=== PATIENT | male | born 1935 | race Caucasian/White ===

== ENCOUNTER 2016-06-28 10:11 | Inpatient (IN) | payer BC, MEDICARE ==
--- NOTE | ~2016-06-28 | DS ---
Discharge Summary [facility] [address] [facility] [place]. [address] NAME: WISAM SOW : 33 STATUS : DIS IN PAT#: [id number] AGE: 81 ADM/REG DATE : 06/28/16 MR#: [id number] REPORT SERV DATE: 06/30/16 DICTATED BY: JOSEF CRAIN DATE: 06/29/16 REPORT STATUS : Draft TRANSCRIBED BY: AVELINA DATE: 06/29/16 ADMISSION DATE: 06/28/2016 DISCHARGE DATE: 06/29/2016 DISCHARGE DIAGNOSES: 1. Vertigo. 2. Diabetes mellitus type 2. 3. Hypertension. 4. Ischemic cardiomyopathy with EF 28%. 5. Chronic systolic heart failure with reduced EF 28%. 6. Hyperlipidemia. 7. Sick sinus syndrome, status post pacemaker. 8. Coronary artery disease status post LAD stenting in 2008. 9. History of left carotid endarterectomy. 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 DISCHARGE CONDITION: Stable. HISTORY OF PRESENT ILLNESS: In brief, this is an 81-year-old male with medical history of cardiomyopathy with EF around 28%, hypertension diabetes, mellitus type 2, who presented to the ED on 06/28/2016 with complaints of dizziness, when he turn his head from side to side. In the ER, he was noted to have vitals, blood pressure of 156/86, heart rate of 71, temperature of 97.8. Physical exam was essentially benign. Laboratory on presentation was within acceptable range. Imaging of the head CT without contrast impression was noted for dense appearing superior segment of the right vertebral artery, questionable embolus. The patient was admitted to the Hospitalist Service for further evaluation. For detailed HPI, please make reference to Dr. Marielle Esqueda, dictation on 06/28/2016. HOSPITAL COURSE: 1. Vertigo. Based on CT noncontrast finding of a possible thrombus within the right vertebral artery segments, Neurology was consulted for his CVA workup. Neurology recommended a CTA of the head and neck. CTA of the head and neck was negative, showed no intracranial thrombus identified. Diagnosis of the patient's presentation likely due to BPPV/vertigo. Nephrology recommended to start the patient on Antivert 25 mg p.r.n. The patient's symptoms completely abated during the course of this admission. At the time of discharge, the patient was feeling comfortable. The patient had no further episodes of dizziness and was asked to follow up with primary care physician during the course of this admission. 2. Coronary artery disease status post PCI with history of mixed ischemic cardiomyopathy. Cardiology was consulted because on the initial presentation it was initially thought that the patient's symptoms may be related to cardiac arrhythmias given that the patient is being scheduled to have pacemaker upgraded to AICD. 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 [address] NAME: WISAM SOW : 33 STATUS : DIS IN PAT#: [id number] AGE: 81 ADM/REG DATE : 06/28/16 MR#: [id number] REPORT SERV DATE: 06/30/16 DICTATED BY: JOSEF CRAIN DATE: 06/29/16 REPORT STATUS : Draft TRANSCRIBED BY: AVELINA DATE: 06/29/16 Pavel came and evaluated the patient, noted that the patient's symptoms were not attributed to any cardiac arrhythmias. Cardiology recommended the patient to follow up as an outpatient to have pacemaker upgraded to an AICD. The patient has an appointment scheduled for 07/02/2016 to have the pacemaker upgrade to an AICD. 3. Hypertension. The patient's blood pressure remained controlled throughout the course of this admission. 4. Diabetes mellitus. The patient was placed on subcu insulin during the course of this admission. No period of hypoglycemia noted. The patient was advised to continue oral hypoglycemics and followup with primary care physician as an outpatient. IMAGIN. CTA of the head impression:. a. Mild to moderate calcification of the carotid bifurcations without with hemodynamically significant stenosis. b. No intracranial thrombus identified. 2. CTA brain with and without contrast impression:. a. No intracranial thrombus identified. b. Mild to moderate calcification at the carotid bifurcation without hemodynamically significant stenosis. 3. CTA of the brain on initial presentation:. a. Dense appearance to the superior segment of the right vertebral artery, questionable embolus. DISCHARGE MEDICATIONS: 1. Aspirin 81 mg p.o. daily. 2. Coreg 25 mg p.o. b.i.d. 3. Vitamin D3 5000 units p.o. daily. 4. Coenzyme Q 10 mg p.o. daily. 5. Lisinopril 5 mg p.o. daily. 6. Protonix 40 mg p.o. daily. 7. Tamsulosin 0.4 mg p.o. daily. 8. Balsalazide disodium 2250 mg p.o. b.i.d. 9. Zocor 40 mg p.o. daily. 10.Glimepiride 4 mg p.o. daily. 11.Glimepiride 2 mg p.o. at bedtime. DISCHARGE ACTIVITY: As tolerated. DISCHARGE FOLLOWUP: 1. The patient to follow up with Cardiology on 07/02/2016 to upgrade the pacemaker to an AICD. 2. Follow up with primary care physician. DISCHARGE DIET: ADA, 1800 calorie diet. Greater than 30 minutes was used to prepare this patient's discharge, reconcile medication, advised the patient on discharge plans, and followup. Discharge Summary [address] [address] NAME: WISAM SOW : 33 STATUS : DIS IN PAT#: [id number] AGE: 81 ADM/REG DATE : 06/28/16 MR#: [id number] REPORT SERV DATE: 06/30/16 DICTATED BY: JOSEF CRAIN DATE: 06/29/16 REPORT STATUS : Draft TRANSCRIBED BY: AVELINA DATE: 06/29/16 JANNETTE/AVELINA Josef Crain MD / [id number] CC: MD Nelida Marino D.O. F.A.C.P.
--- NOTE | ~2016-06-28 | CN ---
Consultation Report [facility] [address] [place]. [address] NAME: WISAM SOW : 33 STATUS : ADM IN [facility]#: [id number] AGE: 81 ADM/REG DATE : 06/28/16 MR#: [id number] REPORT SERV DATE: 06/28/16 DICTATED BY: VIRGILIO HOOK DATE: 06/28/16 REPORT STATUS : Draft TRANSCRIBED BY: MODL DATE: 06/28/16 CARDIOVASCULAR CONSULTATION DATE OF CONSULTATION: This cardiovascular consultation requested by Dr. Cid. INDICATION: Vertigo, dizziness, low ejection fraction, question ICD. HISTORY OF PRESENT ILLNESS: Mr. Sow is an 81-year-old man with a history of known coronary artery disease, status post LAD stenting in 2008. He has a history of sick sinus syndrome with prior pacemaker placement. On pacemaker interrogation last year, he had some nonsustained VT, which prompted an echocardiogram. This demonstrated a new low ejection fraction of 30% by echo on 03/25/2016. He underwent cardiac catheterization two days later, demonstrating no new significant coronary artery disease with medical management recommended. He was treated with medical therapy for congestive heart failure as an outpatient for three months. Repeat echocardiogram reveals similar junction fraction of 28%. Earlier today, he developed some symptoms of vertigo. He felt his head spinning especially when he turned from side to side. This lasted for several hours. He ate a meal thinking it was low blood sugar. He did not have any chest pain or palpitations. He presented to the emergency room, where he still had the symptoms. Telemetry monitoring did not show any cardiac arrhythmia. He had a head CT performed, which questioned possible thrombus in his vertebral artery. Neurology has been consulted and is recommended that head CT angiogram. The symptoms have largely now resolved. PAST MEDICAL HISTORY: 1. Coronary artery disease, status post LAD stenting in 2008. 2. Sick sinus syndrome, status post pacemaker. 3. History of left carotid endarterectomy. 4. Hypertension. 5. Hypercholesterolemia. 6. Type 2 diabetes. 7. Mixed ischemic-nonischemic cardiomyopathy. SOCIAL HISTORY: He does not smoke or drink alcohol. FAMILY HISTORY: There is no family history of early coronary artery disease. REVIEW OF SYSTEMS: A complete review of systems was obtained, which is negative in detail except as mentioned above in the HPI. ALLERGIES: LATEX. Consultation Report [facility] [address] [address] NAME: WISAM SOW : 33 STATUS : ADM IN [facility]#: [id number] AGE: 81 ADM/REG DATE : 06/28/16 MR#: [id number] REPORT SERV DATE: 06/28/16 DICTATED BY: VIRGILIO HOOK DATE: 06/28/16 REPORT STATUS : Draft TRANSCRIBED BY: MODLuiz DATE: 06/28/16 MEDICATIONS: As an outpatient include aspirin 81 mg daily, sulfasalazine, Coreg 25 mg twice a day, vitamin D, enzyme Q10, Amaryl, glucosamine, Zestril 5 mg daily, melatonin, multivitamin, Aleve, Protonix, Zocor 40 mg daily, Flomax. PHYSICAL EXAMINATION: VITAL SIGNS: Blood pressure 110/70, heart rate of 70 and regular, respiratory rate of 14. GENERAL: Comfortable in no acute distress. HEENT: Anicteric. No xanthelasma. Lips without cyanosis. NECK: No JVD. Carotids 2+ and symmetric. No carotid bruits. LUNGS: CTA bilaterally. No wheezes or rhonchi. No accessory muscle use. COR: RRR. Normally placed PMI. Normal S1 and S2. No murmurs, rubs or gallops. ABD: Soft, nontender, nondistended. Normal bowel sounds. No abdominal bruits. EXT: No clubbing, cyanosis or edema 2+ and symmetric distal pulses. SKIN: Warm. Dry. No venous stasis changes. MS: No kyphosis. NEURO/PSYCH: Oriented x3. No anxiety or depression. DATA: EK-lead EKG shows AV pacing, left bundle-branch block pattern, nonspecific T- wave abnormalities noted. Laboratory studies: White count of 5, hematocrit of 40. Creatinine of 1.0, BNP of 66. IMPRESSION: Mr. Sow is admitted with symptoms of vertigo. There is a concern that he might have a vertebral embolus or thrombus. Further confirmation, pending head CT angiogram results. I do not think his symptoms are consistent with cardiac arrhythmia. He was still having symptoms in the emergency room when he was on telemetry and no arrhythmia was noted. The device interrogation about two weeks ago shows only 4 seconds of nonsustained ventricular tachycardia, but no other arrhythmias. We will continue his current neurologic evaluation. He has an appointment for consideration of an elective ICD, biventricular ICD upgrade with Dr. Morris on Thursday. JEROME/MODL Virgilio Hook M.D. / [id number] CC: MD Nelida Marino D.O. F.A.C.P.
--- NOTE | ~2016-06-28 | CN ---
Consultation Report [facility] [address] [place]. [address] NAME: WISAM SOW : 33 STATUS : ADM IN PAT#: [id number] AGE: 81 ADM/REG DATE : 06/28/16 MR#: [id number] REPORT SERV DATE: 06/28/16 DICTATED BY: DATE: REPORT STATUS : Draft TRANSCRIBED BY: MODL DATE: 06/28/16 NEUROLOGY CONSULTATION DATE OF CONSULTATION: 06/28/2016 REASON FOR CONSULT: Vertigo. HISTORY OF PRESENT ILLNESS: This is an 81-year-old male, presented to [facility] on 06/28/2016 secondary to vertigo type of sensation, with the patient reports the symptoms started when the patient is awake at 0800 hours with associated gait abnormality, walking as if he is drunk with a severe balance problem, bumping to wall all the time. The patient was last noted to be normal at 2300 hours on 06/27/2016 by before going to bed. The patient denies similar symptoms in the past. Otherwise, denies any dysarthria, dysphagia, language difficulties, diplopia, and denies any focal weakness. The patient's symptoms since improved after emergency department treated the patient with medication. The patient reports a history of upper respiratory infection several weeks ago with a residual cough, but otherwise, no recent illness. No chest pain or shortness of breath. The patient does have a history of recent carvedilol to addition to his medication list since March 2016 with a slow titration secondary to congestive heart failure, with the patient has had recent echocardiogram on 06/19/2016 with demonstrating decreased EF of once 30% to apparently 28%. The patient is scheduled to be evaluated by Dr. Morris of Cardiology for biventricular pacemaker placement with a defibrillator function this week, 07/02/2016. Otherwise, the patient does have a history of previous aspirin and Plavix usage with the patient noted to have anemia when patient was on Plavix. The patient is currently only on aspirin 81 mg p.o. daily with reports compliance and is on simvastatin. No other changes in medication were otherwise noted. The patient does not have any recent fever and no other recent illness. PAST MEDICAL HISTORY: The patient's past medical history is significant for pacemaker placement; diabetes; hypertension; coronary artery disease, status post stents as well as history of congestive heart failure, recent echocardiogram on 06/19/2016, history of arthritis. FAMILY HISTORY: Significant for diabetes, colon issues, arthritis, stroke in the father as well as emphysema. The patient's father is a smoker. SOCIAL HISTORY: The patient, otherwise social history denies tobacco, alcohol, or recreational drug usage. MEDICATIONS: The patient currently is on aspirin as well as balsalazide, carvedilol, vitamin D3, coenzyme Q10, Amaryl, glucosamine and chondroitin, lisinopril, melatonin, multivitamin, naproxen, Protonix, Systane eyedrop, simvastatin, Flomax. ALLERGIES: THE PATIENT REPORTS ALLERGY TO ADHESIVE TAPE AND LATEX. Consultation Report [place] [id number] [facility] [place]. [address] NAME: WISAM SOW : 33 STATUS : ADM IN [facility]#: [id number] AGE: 81 ADM/REG DATE : 06/28/16 MR#: [id number] REPORT SERV DATE: 06/28/16 DICTATED BY: DATE: REPORT STATUS : Draft TRANSCRIBED BY: MODL DATE: 06/28/16 REVIEW OF SYSTEMS: Otherwise, negative except for those mentioned in the HPI. PHYSICAL EXAMINATION: VITAL SIGNS: The patient, since the hospitalization, was noted to have vital signs with T- max of 97.8, heart rate of 71 to 88, respirations of 14 to 20, and blood pressure of 127 to 156 over 63 to 86. GENERAL: The patient is well developed, well nourished, in no acute distress. CARDIOVASCULAR: Regular rate and rhythm. No carotid bruits were otherwise auscultated. PULMONARY: Clear to auscultation bilaterally. NEUROLOGICAL EXAMINATION: Generally, the patient is alert and oriented x3. Follows simple and 2-step commands. No dysarthria. No aphasia. Intact registration and recall. Cranial nerves II through XII, pupils equal, round, and reactive to light. Extraocular eye movement was noted to be intact. No nystagmus was noted. The patient denies diplopia or vertigo with extraocular eye movement. Mild decreased nasolabial fold on the right. Otherwise, symmetrical facial sensation. Midline tongue. Normal palatal movement. The patient was noted to have decreased hearing in bilateral ears with bilateral hearing aids. Otherwise, was noted to have 5/5 bilateral upper and lower extremity strength. No pronator drift. Normal [id number] examination without ataxia. 1+ reflexes throughout. Normal station. Normal gait. Symmetrical sensation bilaterally. LABORATORY STUDIES: Demonstrates sodium 143, potassium of 4.3, chloride 106, bicarb of 28, BUN of 19, creatinine 0.97, glucose of 141, calcium of 8.5. White blood cell count of 5.0, hemoglobin of 12.7, hematocrit of 40.5, platelet count of 214. CT scan of the brain, otherwise demonstrated no acute process. However, prominent right vertebral artery was noted concern for possible thrombus. IMPRESSION: 1. Vertigo. Last noted to be normal on 2300 hours on 06/27/2016, the patient woke up at 0800 hours with vertigo with the patient noted to have improved symptoms after ER presentation and treatment. Alteplase was not offered secondary to symptom onset greater than 4.5 hours, so is thrombectomy not offered secondary to the patient's improving symptoms. NIH stroke scale was noted to be 1. Agree with CT angiogram of head and neck. The patient is unable to obtain MRI secondary to previous pacemaker placement. We are recommending the patient to be placed on thiamine 100 mg p.o. daily as well as telemetry monitoring. The patient does have a recent echocardiogram on 06/19/2016, we will not repeat. Otherwise, we will discontinue the patient's simvastatin and place the patient on atorvastatin 80 mg p.o. q.h.s. We will continue aspirin pending CTA of the head and neck, we will decide if the patient needs to be on Plavix. RECOMMENDATION: 1. CT angiogram of head and neck. Consultation Report [address] [place]. [address] NAME: WISAM SOW : 33 STATUS : ADM IN PAT#: [id number] AGE: 81 ADM/REG DATE : 06/28/16 MR#: [id number] REPORT SERV DATE: 06/28/16 DICTATED BY: DATE: REPORT STATUS : Draft TRANSCRIBED BY: MODL DATE: 06/28/16 2. Thiamine 100 mg p.o. daily. 3. Recent echocardiogram on 06/19/2016. 4. Atorvastatin 80 mg p.o. q.h.s. 5. Discontinue simvastatin. 6. We will check orthostatic vitals. 7. If the patient was noted to have a persistent resolution of the symptom and CT angiogram is otherwise normal, we will hopefully be able to discharge the patient on 06/29/2016. CCH/MODL Forrest Kearney MD / [id number] CC: MD Nelida Marino D.O. F.A.C.P.
--- NOTE | ~2016-06-28 | HP ---
History And Physical [address] [address] NAME: WISAM SOW : 33 STATUS : ADM IN [facility]#: [id number] AGE: 81 ADM/REG DATE : 06/28/16 MR#: [id number] REPORT SERV DATE: 06/28/16 DICTATED BY: KRUPA HIGUERA DATE: 06/28/16 REPORT STATUS : Draft TRANSCRIBED BY: AVELINA DATE: 06/28/16 DATE OF ADMISSION: 06/28/2016 CHIEF COMPLAINT: Dizziness. HISTORY OF PRESENT ILLNESS: This is an 81-year-old man with past medical history of cardiomyopathy with an EF of around 28%, hypertension, diabetes type 2, comes into the ED complaining of dizziness that started on the day of admission. The patient reports that he was stumbling. Dizziness experienced more when turning his head from side to side. The patient reports that he is to go to Dr. Flores for AICD placement early next week and came into the hospital because he thought his symptoms were heart related. The patient denies any chest pain, shortness of breath, palpitations, diaphoresis, hemoptysis, melena, hematochezia, orthopnea, lower extremity swelling, slurred speech, localized weakness, headache, loss of consciousness, or blurry vision. The patient denies any fever, chills, nausea, vomiting, or diarrhea. The patient was evaluated in the ED. A CT without contrast was done which showed dense-appearing superior segment of right vertebral artery that question embolus. The ED physician discussed case with Neurology. Neurology recommended inpatient management. ALLERGIES: LATEX, ADHESIVE. HOME MEDICATIONS: Include: 1. Aspirin 81 mg p.o. at bedtime. 2. Balsalazide 2250 p.o. b.i.d. 3. Carvedilol 25 mg p.o. b.i.d. 4. Vitamin D3 1000 unit tab 5000 units p.o. daily. 5. Coenzyme Q10 100 mg p.o. daily. 6. Amaryl 2 mg p.o. at bedtime. 7. Amaryl 4 mg p.o. daily. 8. Glucosamine chondroitin 1 tablet p.o. b.i.d. 9. Lisinopril 5 mg p.o. daily. 10.Melatonin 3 mg at bedtime. 11.Multivitamin p.o. daily. 12.Naproxen 220 mg p.o. daily p.r.n. 13.Protonix 40 mg p.o. b.i.d. 14.Systane eye drops p.r.n. 15.Zocor 40 mg p.o. at bedtime. 16.Flomax 0.4 mg p.o. at bedtime. 17.MegaRed p.o. daily. 18. capsule p.o. b.i.d. PAST MEDICAL HISTORY: Significant for: 1. Ischemic cardiomyopathy with EF around 20%. 2. Hypertension. 3. Hyperlipidemia. 4. Diabetes type 2. History And Physical [address] [address] NAME: WISAM SOW : 33 STATUS : ADM IN [facility]#: [id number] AGE: 81 ADM/REG DATE : 06/28/16 MR#: [id number] REPORT SERV DATE: 06/28/16 DICTATED BY: KRUPA HIGUERA DATE: 06/28/16 REPORT STATUS : Draft TRANSCRIBED BY: AVELINA DATE: 06/28/16 5. Status post pacemaker. SOCIAL HISTORY: Denies any alcohol, tobacco, or illicit drug use. FAMILY HISTORY: Positive for coronary artery disease in the mother. REVIEW OF SYSTEMS: Twelve-point system reviewed, otherwise negative per HPI. PHYSICAL EXAMINATION: VITAL SIGNS: Temperature 97.8, heart rate 71, blood pressure 156/86, respiratory rate 18, and O2 saturation 100. GENERAL: In no acute distress. HEENT: EOMI, PERRLA. Nonicteric sclerae. Nonerythematous pharynx. NECK: Supple. No JVD. No lymphadenopathy. RESPIRATORY: Clear to auscultation bilaterally. No wheeze, rhonchi, or crackles. CARDIOVASCULAR: Regular rate and rhythm. No murmurs, rubs, or gallops. ABDOMEN: Bowel sounds positive. Soft, nontender, nondistended. No rebound or guarding. EXTREMITIES: No edema or cyanosis. NEUROLOGIC: Alert and oriented x3. Cranial nerves 2 through 12 intact. LABORATORY DATA: WBC of 5, hemoglobin 12.7, hematocrit 40.5, platelets 214. Sodium 142, potassium 4.3, chloride 106, bicarb 28, BUN 19, creatinine 0.97. BNP 66.4. IMAGING: CT of the head without contrast, impression: Dense-appearing superior segment of the right vertebral artery. Question embolus. Chest x-ray, impression: No acute cardiopulmonary disease. Pacemaker overlying the left chest, stable. ASSESSMENT: 1. Dizziness. Differential benign paroxysmal positional vertigo, cerebrovascular accident. 2. Ischemic cardiomyopathy with EF of 28%. 3. Hypertension. 4. Hyperlipidemia. 5. Diabetes type 2. 6. Pacemaker. PLAN: The patient will be admitted to medical bed. CVA order set. Consult Neurology. Aspirin and statin. Follow up CTA of the head and neck. Restart appropriate home medications. Meclizine. Consult Dr. Flores of Cardiology for possible AICD placement. Sliding scale level 2 a.c. and h.s. coverage. Further evaluation and management per clinical course. Code status is full code. DVT prophylaxis with Lovenox. GI prophylaxis with PPI. Total time for history and physical is 35 minutes. History And Physical [address] [address] NAME: WISAM SOW : 33 STATUS : ADM IN [facility]#: [id number] AGE: 81 ADM/REG DATE : 06/28/16 MR#: [id number] REPORT SERV DATE: 06/28/16 DICTATED BY: KRUPA HIGUERA DATE: 06/28/16 REPORT STATUS : Draft TRANSCRIBED BY: AVELINA DATE: 06/28/16 TAMMIE/AVELINA Marielle Esqueda MD / [id number] CC: MD Nelida Marino D.O. F.A.C.P.
[~2016-06-28 10:11] MED LIST: ALEVE220 MG PO; AMARYL2 PO; AMARYL4 PO; AMB10 PO; ASAB PO; CENTRUM TAB1 TAB PO; CITRACAL PO; COLAZAL 750 MG750 MG PO; COQ10100 MG OR; COQ10100 MG PO; COREG3 PO; FISH-EPA1000 MG PO; FLEXI JOIN1 PO; FLOMAX4 PO; GLUCCHONDR PO; GLUCOSAMINEPO; MEGA RED KRILL OIL PO; MELA3 PO; MULTIPLE VIT PO; MULTIVITAMI1 PO; NEXIUM40 PO; NORV25 PO; OS500+D PO; PLAVIX PO; PRIN10 PO; PRIN5 PO; PROMEGA PO; ROZEREM8 MG PO; T PO; VITAMIN D31000 UNIT PO; ZESTRIL20 MG PO; ZOCOR40 PO; [UNRECOGNIZED DRUG - OTHER] PO; [UNRECOGNIZED DRUG - OTHER] PO
[2016-06-28 11:48] LABS: BASOPHILS 0.2 %; BASOPHILS ABSOLUTE 0.01 10/3/uL (0.0-0.16); EOSINOPHILS 0.4 %; EOSINOPHILS ABSOLUTE 0.02 10/3/uL (0.0-0.53); ER CBC TAT 0 Hrs 07 Mins; HEMATOCRIT 40.5 % (40.0-51.0); HEMOGLOBIN 12.7 g/dL (13.6-17.8); LYMPHOCYTES 21.4 %; LYMPHOCYTES ABSOLUTE 1.07 10/3/uL (0.67-4.30); MEAN CORPUS HGB CONC 31.4 g/dL (32.0-36.0); MEAN CORPUSCULAR HEMOGLOB 25.8 pg (26.0-34.0); MEAN CORPUSCULAR VOLUME 82.3 fL (80-100); MEAN PLATELET VOLUME 10.1 fL (9.2-13.0); MONOCYTES 5.6 %; MONOCYTES ABSOLUTE 0.28 10/3/uL (0.21-1.20); NEUTROPHILS 72.4 %; NEUTROPHILS ABSOLUTE 3.62 10/3/uL (2.02-8.40); PLATELET COUNT 214 10/3/uL (150-400); RBC DISTRIBUTION WIDTH 15.4 % (12.0-16.0); RED CELL COUNT 4.92 10/6/uL (4.7-6.1)
[2016-06-28 11:50] LABS: MANUAL DIFF NO %
[2016-06-28 12:00] LABS: CALCIUM, SERUM 8.5 MG/DL (8.5-10.4); CHLORIDE, SERUM 106 MMOL/L (96-112); CO2 (CARBON DIOXIDE) 28 MMOL/L (24-34); CREATININE 0.97 MG/DL (0.70-1.30); GFR AFRICAN AMERICAN 83 ML/MIN (>=60); GFR NON AFRICAN AMERICAN 72 ML/MIN (>=60); POTASSIUM, SERUM 4.3 MMOL/L (3.5-5.3); SODIUM, SERUM 143 MMOL/L (135-148)
[2016-06-28 12:01] LABS: BUN (BLOOD UREA NITROGEN) 19 MG/DL (6-23); GLUCOSE, SERUM 141 MG/DL (60-99)
[2016-06-28] MEDS ORDERED: COREG25 PO (13:15)
[2016-06-28] MEDS ORDERED: PROTONIX PO (13:15)
[2016-06-28] MEDS ORDERED: PRESERVISION A1 EAC1 PO (13:16)
[2016-06-28] MEDS ORDERED: ZOCOR40 PO (13:16)
[2016-06-28] MEDS ORDERED: BALSALAZIDE750 MG PO (13:16)
[2016-06-28] MEDS ORDERED: ZESTRIL5 MG PO (13:16)
[2016-06-28] MEDS ORDERED: ALEVE220 MG PO (13:17)
[2016-06-28] MEDS ORDERED: AMARYL2 PO (13:17)
[2016-06-28] MEDS ORDERED: AMARYL4 PO (13:17)
[2016-06-28] MEDS ORDERED: FLOMAX4 PO (13:17)
[2016-06-28] MEDS ORDERED: THERGRANM PO (13:17)
[2016-06-28] MEDS ORDERED: MEGA RED PO (13:18)
[2016-06-28] MEDS ORDERED: MELA3 PO (13:18)
[2016-06-28] MEDS ORDERED: GLUCCHONDR PO (13:18)
[2016-06-28] MEDS ORDERED: SYSTANE OPH (13:18)
[2016-06-28] MEDS ORDERED: HALF81 PO (13:18)
[2016-06-28] MEDS ORDERED: VITAMIN D31000 UNIT PO (13:19)
[2016-06-28] MEDS ORDERED: CO Q-10100 MG PO (13:19)
[2016-06-28 19:12] LABS: CHOL/HDL RATIO(NOT ORDER) 2.4 (0-5); CHOLESTEROL 124 MG/DL (< 200); HDL CHOLESTEROL 52 MG/DL (> 39); LDL CHOLESTEROL 50 MG/DL (< 130); NON-HDL CHOLESTEROL 72 MG/DL (< 160); TRIGLYCERIDE 111 MG/DL (< 150)
[2016-06-28 19:25] LABS: INTERNATIONAL NORMAL RATI 1.2 UNITS (-); PARTIAL THROMBO TIME 33.3 SEC (22.5-37.2); PROTIME (NOT ORD) 15.3 SEC (12.0-14.5)
[2016-06-28 19:34] LABS: TROPONIN I <0.02 NG/ML (<0.05)
[2016-06-28 19:46] LABS: CK-MB 2.3 NG/ML; CPK 118 U/L (0-200)
[2016-06-29 03:03] LABS: ASCORBIC ACID (UR NOT ORDER) 40 (NEG); BILIRUBIN, URINE NEGATIVE (NEG); KETONE, URINE NEGATIVE (NEG); LEUKOCYTE ESTERASE(NOT OR NEG (NEG); WBC (NOT ORDERED) (RFLEX) < 1 (0-5)
[2016-06-29 03:39] LABS: BASOPHILS 0.2 %; BASOPHILS ABSOLUTE 0.01 10/3/uL (0.0-0.16); EOSINOPHILS 0.9 %; EOSINOPHILS ABSOLUTE 0.04 10/3/uL (0.0-0.53); HEMATOCRIT 36.3 % (40.0-51.0); HEMOGLOBIN 11.5 g/dL (13.6-17.8); LYMPHOCYTES 29.5 %; LYMPHOCYTES ABSOLUTE 1.37 10/3/uL (0.67-4.30); MANUAL DIFF NO %; MEAN CORPUS HGB CONC 31.7 g/dL (32.0-36.0); MEAN CORPUSCULAR HEMOGLOB 25.7 pg (26.0-34.0); MEAN CORPUSCULAR VOLUME 81.2 fL (80-100); MEAN PLATELET VOLUME 10.2 fL (9.2-13.0); MONOCYTES 8.6 %; NEUTROPHILS 60.8 %; NEUTROPHILS ABSOLUTE 2.83 10/3/uL (2.02-8.40); PLATELET COUNT 206 10/3/uL (150-400); RBC DISTRIBUTION WIDTH 15.3 % (12.0-16.0); RED CELL COUNT 4.47 10/6/uL (4.7-6.1); WHITE BLOOD CELLS 4.7 10/3/uL (4.5-10.5)
[2016-06-29 03:59] LABS: BUN (BLOOD UREA NITROGEN) 21 MG/DL (6-23); CALCIUM, SERUM 8.4 MG/DL (8.5-10.4); CHLORIDE, SERUM 109 MMOL/L (96-112); CHOL/HDL RATIO(NOT ORDER) 2.3 (0-5); CHOLESTEROL 118 MG/DL (< 200); CO2 (CARBON DIOXIDE) 27 MMOL/L (24-34); CPK 100 U/L (0-200); CREATININE 0.99 MG/DL (0.70-1.30); GFR AFRICAN AMERICAN 81 ML/MIN (>=60); GFR NON AFRICAN AMERICAN 70 ML/MIN (>=60); HDL CHOLESTEROL 51 MG/DL (> 39); NON-HDL CHOLESTEROL 67 MG/DL (< 160); POTASSIUM, SERUM 3.9 MMOL/L (3.5-5.3); SODIUM, SERUM 144 MMOL/L (135-148); TROPONIN I <0.02 NG/ML (<0.05)
[2016-06-29 04:01] LABS: CK-MB 1.6 NG/ML; GLUCOSE, SERUM 61 MG/DL (60-99); LDL CHOLESTEROL 52 MG/DL (< 130); TRIGLYCERIDE 76 MG/DL (< 150)
[2016-06-29 10:39] LABS: CPK 101 U/L (0-200); TROPONIN I <0.02 NG/ML (<0.05)
[2016-06-29 10:40] LABS: CK-MB 1.9 NG/ML
[2016-06-29] MEDS ORDERED: MCZ25 PO ×2 (16:07→16:08)
[2016-06-29] MEDS ORDERED: B1100 PO (16:09)
[2016-07-07] MEDS ORDERED: ALEVE220 MG PO (08:52)
[2016-07-07] MEDS ORDERED: KRILLOIL (08:52)
[2016-07-08] MEDS ORDERED: ULTRAM50 PO (10:59)
== END 2016-06-29 16:59 | disposition home or self-care (01) | DRG 149 ==
LOC: ER 10:11 → 2SO 15:05
PROVIDERS: Emergency Medicine; Hospitalist; Internal Medicine
DX: R42 Dizziness and giddiness (principal); I50.22 Chronic systolic (congestive) heart failure; I25.5 Ischemic cardiomyopathy; I10 Essential (primary) hypertension; E78.5 Hyperlipidemia, unspecified; I25.10 Atherosclerotic heart disease of native coronary artery without angina pectoris; E78.00 Pure hypercholesterolemia, unspecified; Z95.0 Presence of cardiac pacemaker; Z82.49 Family history of ischemic heart disease and other diseases of the circulatory system; Z83.3 Family history of diabetes mellitus; Z82.3 Family history of stroke; Z82.61 Family history of arthritis; Z91.040 Latex allergy status
CPT/HCPCS: 70450; 70496; 70498; 71010; 80048; 80061; 81001; 82550; 82553; 82962; 83036; 83735; 83880; 84484; 85025; 85610; 85730; 93005; 99285; A9270-GY; Q9967